=== PATIENT | male | born 1965 | race Caucasian/White ===

== ENCOUNTER 2017-09-18 15:04 | Emergency (ER) | payer BC ==
[2017-09-18 16:17] VITALS: BP 138/87; PULSE 97; RESP 16; TEMP 98.2
--- NOTE | 2017-09-18 18:34 | ED ---
General Adult HPI - General Chief complaint: Wound/Laceration Stated complaint: lac left lid Time Seen by Provider: 09/18/17 18:00 Source: patient, RN notes reviewed Mode of arrival: ambulatory Limitations: no limitations - History of Present Illness Initial comments: 51-year-old male presents to the emergency department for a chief complaint of laceration to the left eyebrow x 2 hours. Patient was riding a lawnmower when a branch hit him in the eyebrow. Patient denies loss of consciousness or pain in the head. Patient denies neck pain. Patient denies being on blood thinners. Patient states he can move his neck without pain. Patient denies any headaches or visual changes. Patient denies pain in the eye or with movement of the eye. Patient denies pain around the orbit besides the laceration. Patient states his tetanus is up-to-date as of 1 year ago. Patient has no other complaints at this time including shortness of breath, chest pain, abdominal pain, nausea or vomiting. - Related Data Allergies Allergy/AdvReac Type Severity Reaction Status Date / Time No Known Allergies Allergy Verified 09/18/17 16:18 Review of Systems ROS Statement: Those systems with pertinent positive or pertinent negative responses have been documented in the HPI. ROS Other: All systems not noted in ROS Statement are negative. Past Medical History Past Medical History: No Reported History History of Any Multi-Drug Resistant Organisms: None Reported Past Surgical History: No Surgical Hx Reported Past Psychological History: No Psychological Hx Reported Smoking Status: Never smoker Past Alcohol Use History: Rare Past Drug Use History: None Reported General Exam Limitations: no limitations General appearance: alert, in no apparent distress Head exam: Present: atraumatic, normocephalic, normal inspection Eye exam: Present: PERRL, EOMI (No pain with movement of the eyes), periorbital swelling (patient has moderate periorbital swelling along the superior aspect. There is a 3 cm laceration of the left eyebrow.). Absent: scleral icterus, conjunctival injection (No redness of the eye. No pain of the eye no foreign body sensation. No hyphema.), nystagmus, periorbital tenderness (No tenderness around the orbit besides for the laceration site.) ENT exam: Present: normal exam, normal oropharynx, mucous membranes moist, TM's normal bilaterally (Negative hemotympanum), normal external ear exam Neck exam: Present: normal inspection, full ROM (Patient has full flexion and extension of the neck as well as rotation bilaterally). Absent: tenderness, meningismus, lymphadenopathy Respiratory exam: Present: normal lung sounds bilaterally. Absent: respiratory distress, wheezes, rales, rhonchi, stridor Cardiovascular Exam: Present: regular rate, normal rhythm, normal heart sounds. Absent: systolic murmur, diastolic murmur, rubs, gallop, clicks Neurological exam: Present: alert, oriented X3, CN II-XII intact, other (GCS 15) . Absent: motor sensory deficit Course Vital Signs 09/18/17 16:15 Temperature 98.2 F Pulse Rate 97 Respiratory 16 Rate Blood Pressure 138/87 O2 Sat by Pulse 97 Oximetry Procedures - Procedures Initial comment: Body area: Left eyebrow Laceration length: 3 cm Foreign bodies: no foreign bodies Tendon involvement: none Nerve involvement: none Vascular damage: no Anesthesia: local infiltration Local anesthetic: 4 mL 1% lidocaine Preparation: Patient was prepped and draped in the usual sterile fashion. Irrigation solution: saline Irrigation method: Saline jet lavage Skin closure:5-0 Ethilon using sterile technique Number of sutures: 8 Technique: interupted Dressing: antibiotic ointment/ gauze Patient tolerance: Patient tolerated the procedure well with no immediate complications. Medical Decision Making - Medical Decision Making 51-year-old male presents to the emergency department for a chief complaint of laceration to the left eyebrow. Patient was riding a lawnmower when a branch hit him in the eyebrow. Patient denies loss of consciousness. Patient denies any pain in the head or headache. Patient denies any neck pain. Patient states his tetanus is up-to-date as of 1 year ago. Patient denies any visual changes or pain in the eye such as foreign body sensation. On exam there is a 3 cm laceration to the left eyebrow. Conjunctiva is nonerythematous and appears atraumatic. Negative for hyphema. There is superior periorbital swelling. No tenderness in the periorbital area of the left eye. Visual acuity 20 out of 20 in both eyes and right and left eye alone. I offered patient CAT scan of facial bones but patient refuses. He does not think it is broken at this time and just needs it to be sutured. Wound was cleaned thoroughly with saline. It was sutured with 8 sutures. It was then covered with bacitracin. Patient was educated on return precautions including those for infection. He will follow-up with primary care in 1-2 days. He will return in 5 days for suture removal. Disposition Clinical Impression: Laceration Disposition: HOME SELF-CARE Condition: Good Instructions: Care For Your Stitches (ED), Laceration (ED) Additional Instructions: Please monitor for signs of infection such as spreading redness or drainage or fever and return if these occur. If you have any worsening symptoms, headache, or visual changes return to the ER. Return in 5 days to have sutures removed. There are 8 sutures. Follow-up with primary care in 1-2 days. Is patient prescribed a controlled substance at d/c from ED?: No Referrals: Cleopatra Kendall MD [Primary Care Provider] - 1-2 days Time of Disposition: 18:32
== END 2017-09-18 18:42 | disposition home or self-care (01) ==
LOC: EC 15:04
DX: S01.112A Laceration without foreign body of left eyelid and periocular area, initial encounter (principal); W22.8XXA Striking against or struck by other objects, initial encounter; Y93.89 Activity, other specified
CPT/HCPCS: 12013; 99282